=== PATIENT | female | born 1980 | race African-American/Black ===

== ENCOUNTER → 2016-06-05 | Outpatient (CLI) | payer OTHER ==
[2014-11-17 23:30] VITALS: BP 144/81
[~2016-06-05] MED LIST: ALBU1.25; ALBU8.5H6; NAPR500T PO; OXYC1TAB7 PO
--- NOTE | 2016-06-05 17:00 | KCIC ---
Examination: Ultrasound pelvis. HISTORY History of menorrhagia with irregular menstrual cycle, right pelvic pain. COMPARISON None available Findings: The uterus measures 11.9 x 4.5 x 6.5 centimeters. The endometrium measures 2 millimeters in thickness. The right ovary measures 2.4 x 2.2 x 3.3 centimeters. The left ovary measures 3.2 x 2.1 x 2.5 centimeters. The left ovary could not be clearly identified on transvaginal ultrasound exam. Blood flow identified in the right and left ovaries. No significant free fluid identified in the cul-de-sac. IMPRESSION Unremarkable visualized exam. Electronically signed by: Markos Foster (Jun 05, 2016 16:59:28)
== END | disposition home or self-care (01) ==
LOC: KCIC US 15:20
PROVIDERS: ATTEND Physician Assistant Surgical
DX: N92.0 Excessive and frequent menstruation with regular cycle (principal)
CPT/HCPCS: 76830; 76856

== ENCOUNTER 2017-05-11 16:20 | Observation (INO) | payer OTHER ==
[2014-11-17 23:30] VITALS: BP 144/81
[~2017-05-11] VITALS: Ht 167.6 cm; Wt 136.5 kg
[~2017-05-11 16:20] MED LIST changes: +ATEN25TA PO; +NAPR-683 PO; -NAPR500T PO; +PNV1TABL25 PO
[2017-05-11 17:14] LABS: BILIRUBIN,URINE NEGATIVE (NEG); GLUCOSE,URINE NEGATIVE (NEG); NITRITE,URINE NEGATIVE (NEG); PROTEIN,URINE NEGATIVE (NEG-TRACE)
[2017-05-11 17:33] LABS: BACTERIA,URINE FEW /HPF (0-FEW); RBC,URINE 0 /HPF (0-2); SQUAMOUS EPITHELIAL CELL,UR MOD /LPF; WBC,URINE OCC /HPF (0-4)
== END 2017-05-11 18:30 | disposition home or self-care (01) ==
LOC: 3 SO LND 16:20
PROVIDERS: ADMIT Obstetrics & Gynecology; ATTEND Obstetrics & Gynecology
DX: O26.893 Other specified pregnancy related conditions, third trimester (principal); R10.9 Unspecified abdominal pain; R05 Cough; Z3A.35 35 weeks gestation of pregnancy
CPT/HCPCS: 81001; G0378; G0379

== ENCOUNTER 2017-06-05 06:01 | Inpatient (IN) | payer OTHER ==
[2017-06-05] MEDS: IV RINGERS,LACTATED 1000ML 1,000 ML IV ×7 (06:16→23:00)
[2017-06-05] MEDS ORDERED: OXYTOCIN 30 UNIT/500 ML PREMIX 500 ML IV ×2 (06:30→09:30)
[2017-06-05] MEDS ORDERED: 0.9 % SODIUM CHLORIDE 10 ML DISP.SYRIN. IV ×2 (06:30→09:30)
[2017-06-05] MEDS ORDERED: OXYTOCIN 10 UNIT/ML VIAL. ×2 (07:08→09:04)
[2017-06-05] MEDS ORDERED: ONDANSETRON PF 4 MG/2 ML VIAL. ×2 (07:08)
[2017-06-05] MEDS ORDERED: fentaNYL PF VIAL 100 MCG/2 ML VIAL (07:08)
[2017-06-05] MEDS ORDERED: MORPHINE PF 5 MG/10 ML VIAL. (07:08)
[2017-06-05] MEDS ORDERED: ePHEDrine PF IN SALINE 50 MG/5 ML DISP.SYRIN IV (07:09)
[2017-06-05 07:13] LABS: BILIRUBIN,URINE NEGATIVE (NEG); CLARITY,URINE CLEAR; COLOR,URINE YELLOW; GLUCOSE,URINE NEGATIVE (NEG); NITRITE,URINE NEGATIVE (NEG); PH,URINE 7.5; PROTEIN,URINE NEGATIVE (NEG-TRACE); UROBILINOGEN,URINE 0.2 mg/dL (0.2 mg/dL)
[2017-06-05 07:18] LABS: ADD MAN DIFF? NO
[2017-06-05 07:23] LABS: BASO % 0 % (0-3); EOS # 0.1 x10^3/uL (0.0-0.7); EOS % 1 % (0-3); HEMATOCRIT 32.5 % (36.0-47.0); HEMOGLOBIN 10.6 g/dL (12.0-15.5); LYMPH # 2.5 x10^3/uL (1.0-4.8); LYMPH % 29 % (24-48); MEAN CORPUSCULAR HEMOGLOBIN 27 pg (25-35); MEAN CORPUSCULAR HGB CONC 33 g/dL (31-37); MEAN CORPUSCULAR VOLUME 84 fL (79-100); MONO # 0.8 x10^3/uL (0.0-1.1); MONO % 9 % (0-9); NEUT # 5.2 x10^3uL (1.8-7.7); NEUT % 60 % (31-73); PLATELET COUNT 232 x10^3/uL (140-400); RED BLOOD COUNT 3.87 x10^6/uL (3.50-5.40); RED CELL DISTRIBUTION WIDTH 14.6 % (11.5-14.5); SQUAMOUS EPITHELIAL CELL,UR MANY /LPF; WHITE BLOOD COUNT 8.6 x10^3/uL (4.0-11.0)
[2017-06-05 07:24] LABS: BACTERIA,URINE MODERATE /HPF (0-FEW); RBC,URINE OCC /HPF (0-2)
[2017-06-05] MEDS: CITRIC ACID/SODIUM CITRATE 30 ML SOLUTION. PO (08:00)
[2017-06-05] MEDS ORDERED: FAMOTIDINE 20 MG/2 ML VIAL (09:04)
[2017-06-05] MEDS ORDERED: PHENYLEPHRINE in 0.9% NACL PF 1 MG/10 ML SYRINGE. IV (09:04)
[2017-06-05] MEDS ORDERED: MMR per PROTOCOL. MC (09:30)
[2017-06-05] MEDS ORDERED: SIMETHICONE 80 MG TAB.CHEW PO (09:30)
[2017-06-05] MEDS ORDERED: ZOLPIDEM 5 MG TABLET. PO (09:30)
[2017-06-05] MEDS ORDERED: MAGNESIUM HYDROXIDE 2,400 MG/30 ML ORAL.SUSP. PO (09:30)
[2017-06-05] MEDS ORDERED: MAG HYDROX/ALUMINUM HYD/SIMETH 30 ML ORAL.SUSP PO (09:30)
[2017-06-05] MEDS ORDERED: ONDANSETRON PF 4 MG/2 ML VIAL. IV (09:30)
[2017-06-05] MEDS: KETOROLAC 30 MG/ML INJ. IV (11:44)
[2017-06-05] MEDS: IBUPROFEN 800 MG TABLET. PO (14:00)
[2017-06-05] MEDS ORDERED: ceFAZolin SODIUM 1 GM in IV DEXTROSE 5% 50 ML IV (14:00)
[2017-06-05] MEDS: ceFAZolin SODIUM IV Push 1 GM VIAL. IVP ×2 (15:53→21:47)
[2017-06-05] MEDS: FERROUS SULFATE 325 MG TABLET. PO (17:00)
[2017-06-05] MEDS: diphenhydrAMINE ORAL ELIXIR 12.5 MG/5 ML ML PO (21:51)
[2017-06-06] MEDS: DOCUSATE SODIUM 100 MG CAPSULE. PO (04:32)
[2017-06-06] MEDS: IBUPROFEN 800 MG TABLET. PO ×5 (04:33→23:59)
[2017-06-06] MEDS: oxyCODONE/APAP 5/325 1 TAB TABLET PO ×3 (04:33→15:58)
[2017-06-06] MEDS: ceFAZolin SODIUM IV Push 1 GM VIAL. IVP (05:15)
[2017-06-06 05:36] LABS: ADD MAN DIFF? NO
[2017-06-06 05:42] LABS: BASO % 0 % (0-3); EOS # 0.1 x10^3/uL (0.0-0.7); EOS % 1 % (0-3); HEMATOCRIT 25.4 % (36.0-47.0); HEMOGLOBIN 8.2 g/dL (12.0-15.5); LYMPH # 2.4 x10^3/uL (1.0-4.8); LYMPH % 22 % (24-48); MEAN CORPUSCULAR HEMOGLOBIN 28 pg (25-35); MEAN CORPUSCULAR HGB CONC 33 g/dL (31-37); MEAN CORPUSCULAR VOLUME 85 fL (79-100); MONO # 1.2 x10^3/uL (0.0-1.1); MONO % 11 % (0-9); NEUT # 7.4 x10^3uL (1.8-7.7); NEUT % 67 % (31-73); PLATELET COUNT 197 x10^3/uL (140-400); RED BLOOD COUNT 2.99 x10^6/uL (3.50-5.40); RED CELL DISTRIBUTION WIDTH 14.5 % (11.5-14.5); WHITE BLOOD COUNT 11.1 x10^3/uL (4.0-11.0)
[2017-06-06] MEDS: FERROUS SULFATE 325 MG TABLET. PO ×2 (08:14→15:57)
[2017-06-06 21:11] LABS: RPR Non Reactive (Non Reactive)
[2017-06-07] MEDS: DOCUSATE SODIUM 100 MG CAPSULE. PO ×2 (00:01→20:28)
[2017-06-07] MEDS: oxyCODONE/APAP 5/325 1 TAB TABLET PO ×2 (07:40→20:29)
[2017-06-07] MEDS: FERROUS SULFATE 325 MG TABLET. PO ×2 (09:46→18:18)
[2017-06-07] MEDS: IBUPROFEN 800 MG TABLET. PO ×2 (11:45→22:31)
[2017-06-08] MEDS: IBUPROFEN 800 MG TABLET. PO (06:06)
[2017-06-08] MEDS: oxyCODONE/APAP 5/325 1 TAB TABLET PO (06:07)
[2017-06-08] MEDS: DOCUSATE SODIUM 100 MG CAPSULE. PO (08:35)
[2017-06-08] MEDS: FERROUS SULFATE 325 MG TABLET. PO (08:35)
== END 2017-06-08 14:20 | disposition home or self-care (01) | DRG 766 ==
LOC: 3 SO LND 06:01 → 3 NORTH 11:53
PROC: 10D00Z1 Extraction of Products of Conception, Low, Open Approach (ICD-10-PCS; principal; 2017-06-05)
PROC: 0UB70ZZ Excision of Bilateral Fallopian Tubes, Open Approach (ICD-10-PCS; 2017-06-05)
DX: O36.63X0 Maternal care for excessive fetal growth, third trimester, not applicable or unspecified (principal); Z30.2 Encounter for sterilization; Z37.0 Single live birth; Z3A.39 39 weeks gestation of pregnancy
CPT/HCPCS: 36415; 81001; 85025; 85461; 86593; 86850; 86900; 86901; 87086; 88302; J0690; J1885; J2270; J2370; J2405; J2590; J3010; J7120; S0028

== ENCOUNTER → 2019-06-06 | Outpatient (CLI) | payer OTHER ==
[2017-06-08 08:30] VITALS: BP 136/79
[~2019-06-06] MED LIST changes: +CONTRAST GIVEN. MC PRN; +OXYC1TAB15 PO
[2019-06-06] MEDS: IOHEXOL 240 MG/ML 50ML VIAL. PO ONE (14:15)
[2019-06-06] MEDS: IOHEXOL 300 MG/ML 100ML VIAL. IV ONE (14:15)
--- NOTE | 2019-06-06 16:28 | RAD ---
Examination: CT ABD PELV W/ORAL IV CONTRAST History: Ventral hernia Comparison/Correlation: 08/08/2006 CT abdomen and pelvis with IV and oral contrast Findings: Axial images of the abdomen and pelvis were obtained following IV and oral contrast. Sagittal and coronal reformatted images were provided. Bibasilar lung nodules are present similar to the prior exam. These are punctate in size measuring less than 0.4 cm. Liver, spleen, pancreas, adrenal glands, and kidneys are normal. Gallbladder fossa is unremarkable. There is a midline ventral hernia approximately 6-7 cm superior to the umbilicus. This defect measures 2.5 cm longitudinal by 2.5 cm transverse and contains omental fat. No edema or other suspicious findings to suggest acute inflammation. No extension of bowel into this hernia defect. Small umbilical hernia containing omental fat. Appendix is normal. No enlarged abdominal or pelvic lymph nodes. No extraluminal gas. Mild diverticulosis of the colon is present. Fibroid involving the uterus suggested. No signs of pelvic free fluid. Urinary bladder is grossly unremarkable. Osteitis pubis noted. Bilateral L5 pars interarticularis fractures are present with nearly grade 2 anterolisthesis of L5 in relation to S1 with significant disc space narrowing. Impression: Ventral hernia defect containing omental fat. A small umbilical hernia contains omental fat. L5 bilateral pars interarticularis fractures with grade 2 anterolisthesis of L4 over L5. This appears to have a corresponding finding on 08/08/2006 CT exam. Diverticulosis of the colon. PQRS Compliance Statement: One or more of the following individualized dose reduction techniques were utilized for this examination: 1. Automated exposure control 2. Adjustment of the mA and/or kV according to patient size 3. Use of iterative reconstruction technique Electronically signed by: Cesar Saez MD (06/06/2019 4:25 PM) [facility]
== END | disposition home or self-care (01) ==
LOC: CT 13:10
PROVIDERS: ATTEND Specialist
DX: K43.9 Ventral hernia without obstruction or gangrene (principal); K42.9 Umbilical hernia without obstruction or gangrene; K57.30 Diverticulosis of large intestine without perforation or abscess without bleeding; M85.38 Osteitis condensans, other site; R91.8 Other nonspecific abnormal finding of lung field; M43.17 Spondylolisthesis, lumbosacral region; M48.07 Spinal stenosis, lumbosacral region
CPT/HCPCS: 74177; Q9966; Q9967

== ENCOUNTER 2019-06-07 07:06 | Day surgery (SDC) | payer OTHER ==
[~2019-06-07] VITALS: Ht 167.6 cm; Wt 131.0 kg
[~2019-06-07 07:06] MED LIST changes: -CONTRAST GIVEN. MC PRN; +DEXAMETHASONE SOD PHOS 4 MG/ML VIAL ONE; +HYDROmorphone 2 MG/ML VIAL IV PRN; +IOHEXOL 240 MG/ML 50ML VIAL. ONE; +IOHEXOL 300 MG/ML 100ML VIAL. ONE; +IV RINGERS,LACTATED 1000ML 1,000 ML IV SCH; +LIDOCAINE 2% PF 5 ML VIAL. ONE; +MORPHINE SULFATE 2 MG/ML VIAL. IV PRN; +ONDANSETRON PF 4 MG/2 ML VIAL. IV PRN; +ONDANSETRON PF 4 MG/2 ML VIAL. ONE; +PROCHLORPERAZINE 10 MG/2 ML VIAL. IV PRN; +PROPOFOL 20 ML IV ONE; +ROCURONIUM 50 MG/5 ML VIAL. ONE; +fentaNYL PF VIAL 100 MCG/2 ML VIAL IV PRN
[2019-06-07] MEDS ORDERED: BUPIVACAINE-EPI 0.5%-1:200000 MPF 30 ML VIAL. ONE (07:41)
[2019-06-07 08:04] LABS: BASO % 1 % (0-3); EOS # 0.2 x10^3/uL (0.0-0.7); EOS % 4 % (0-3); HEMATOCRIT 36.2 % (36.0-47.0); HEMOGLOBIN 11.9 g/dL (12.0-15.5); LYMPH # 2.3 x10^3/uL (1.0-4.8); LYMPH % 39 % (24-48); MEAN CORPUSCULAR HEMOGLOBIN 29 pg (25-35); MEAN CORPUSCULAR HGB CONC 33 g/dL (31-37); MEAN CORPUSCULAR VOLUME 88 fL (79-100); MONO # 0.5 x10^3/uL (0.0-1.1); MONO % 9 % (0-9); NEUT # 2.8 x10^3/uL (1.8-7.7); NEUT % 48 % (31-73); PLATELET COUNT 294 x10^3/uL (140-400); RED BLOOD COUNT 4.13 x10^6/uL (3.50-5.40); RED CELL DISTRIBUTION WIDTH 15.1 % (11.5-14.5); WHITE BLOOD COUNT 5.9 x10^3/uL (4.0-11.0)
[2019-06-07 08:12] LABS: PROTHROMBIN TIME PATIENT 13.4 SEC (11.7-14.0)
[2019-06-07 08:13] LABS: CALCIUM 8.7 mg/dL (8.5-10.1); CREATININE 0.9 mg/dL (0.6-1.0); GFR 85.7; POTASSIUM 3.5 mmol/L (3.5-5.1)
[2019-06-07 08:17] LABS: ALBUMIN 3.3 g/dL (3.4-5.0); ALBUMIN/GLOBULIN RATIO 0.7 (1.0-1.7); TOTAL BILIRUBIN 0.3 mg/dL (0.2-1.0); TOTAL PROTEIN 8.1 g/dL (6.4-8.2)
--- NOTE | 2019-06-07 08:44 | PDOC ---
SURGICAL PROGRESS NOTE Subjective No change in dictated H&P. Vital Signs Vital Signs Date Time Temp Pulse Resp B/P (MAP) Pulse Ox O2 Delivery O2 Flow Rate FiO2 06/07/19 08:01 98.0 74 18 160/91 98 Room Air 98.0 Labs Laboratory Tests Test 06/07/19 07:35 06/07/19 07:50 Bedside Urine HCG, Qualitative Hcg negative (Negative) White Blood Count 5.9 x10^3/uL (4.0-11.0) Red Blood Count 4.13 x10^6/uL (3.50-5.40) Hemoglobin 11.9 g/dL (12.0-15.5) Hematocrit 36.2 % (36.0-47.0) Mean Corpuscular Volume 88 fL (79-100) Mean Corpuscular Hemoglobin 29 pg (25-35) Mean Corpuscular Hemoglobin Concent 33 g/dL (31-37) Red Cell Distribution Width 15.1 % (11.5-14.5) Platelet Count 294 x10^3/uL (140-400) Neutrophils (%) (Auto) 48 % (31-73) Lymphocytes (%) (Auto) 39 % (24-48) Monocytes (%) (Auto) 9 % (0-9) Eosinophils (%) (Auto) 4 % (0-3) Basophils (%) (Auto) 1 % (0-3) Neutrophils # (Auto) 2.8 x10^3/uL (1.8-7.7) Lymphocytes # (Auto) 2.3 x10^3/uL (1.0-4.8) Monocytes # (Auto) 0.5 x10^3/uL (0.0-1.1) Eosinophils # (Auto) 0.2 x10^3/uL (0.0-0.7) Basophils # (Auto) 0.0 x10^3/uL (0.0-0.2) Prothrombin Time 13.4 SEC (11.7-14.0) Prothromb Time International Ratio 1.1 (0.8-1.1) Sodium Level 137 mmol/L (136-145) Potassium Level 3.5 mmol/L (3.5-5.1) Chloride Level 103 mmol/L (98-107) Carbon Dioxide Level 28 mmol/L (21-32) Anion Gap 6 (6-14) Blood Urea Nitrogen 9 mg/dL (7-20) Creatinine 0.9 mg/dL (0.6-1.0) Estimated GFR (Cockcroft-Gault) 85.7 BUN/Creatinine Ratio 10 (6-20) Glucose Level 103 mg/dL (70-99) Calcium Level 8.7 mg/dL (8.5-10.1) Total Bilirubin 0.3 mg/dL (0.2-1.0) Aspartate Amino Transf (AST/SGOT) 17 U/L (15-37) Alanine Aminotransferase (ALT/SGPT) 23 U/L (14-59) Alkaline Phosphatase 62 U/L (46-116) Total Protein 8.1 g/dL (6.4-8.2) Albumin 3.3 g/dL (3.4-5.0) Albumin/Globulin Ratio 0.7 (1.0-1.7) Laboratory Tests Test 06/07/19 07:35 06/07/19 07:50 Bedside Urine HCG, Qualitative Hcg negative (Negative) White Blood Count 5.9 x10^3/uL (4.0-11.0) Red Blood Count 4.13 x10^6/uL (3.50-5.40) Hemoglobin 11.9 g/dL (12.0-15.5) Hematocrit 36.2 % (36.0-47.0) Mean Corpuscular Volume 88 fL (79-100) Mean Corpuscular Hemoglobin 29 pg (25-35) Mean Corpuscular Hemoglobin Concent 33 g/dL (31-37) Red Cell Distribution Width 15.1 % (11.5-14.5) Platelet Count 294 x10^3/uL (140-400) Neutrophils (%) (Auto) 48 % (31-73) Lymphocytes (%) (Auto) 39 % (24-48) Monocytes (%) (Auto) 9 % (0-9) Eosinophils (%) (Auto) 4 % (0-3) Basophils (%) (Auto) 1 % (0-3) Neutrophils # (Auto) 2.8 x10^3/uL (1.8-7.7) Lymphocytes # (Auto) 2.3 x10^3/uL (1.0-4.8) Monocytes # (Auto) 0.5 x10^3/uL (0.0-1.1) Eosinophils # (Auto) 0.2 x10^3/uL (0.0-0.7) Basophils # (Auto) 0.0 x10^3/uL (0.0-0.2) Prothrombin Time 13.4 SEC (11.7-14.0) Prothromb Time International Ratio 1.1 (0.8-1.1) Sodium Level 137 mmol/L (136-145) Potassium Level 3.5 mmol/L (3.5-5.1) Chloride Level 103 mmol/L (98-107) Carbon Dioxide Level 28 mmol/L (21-32) Anion Gap 6 (6-14) Blood Urea Nitrogen 9 mg/dL (7-20) Creatinine 0.9 mg/dL (0.6-1.0) Estimated GFR (Cockcroft-Gault) 85.7 BUN/Creatinine Ratio 10 (6-20) Glucose Level 103 mg/dL (70-99) Calcium Level 8.7 mg/dL (8.5-10.1) Total Bilirubin 0.3 mg/dL (0.2-1.0) Aspartate Amino Transf (AST/SGOT) 17 U/L (15-37) Alanine Aminotransferase (ALT/SGPT) 23 U/L (14-59) Alkaline Phosphatase 62 U/L (46-116) Total Protein 8.1 g/dL (6.4-8.2) Albumin 3.3 g/dL (3.4-5.0) Albumin/Globulin Ratio 0.7 (1.0-1.7) NARCISO LINARES MD Jun 07, 2019 08:44
--- NOTE | 2019-06-07 08:48 | PDOC ---
SURGICAL PROGRESS NOTE Subjective Operative Note: Surgeon........ Dr. Linares Pre-op dx...... Incarcerated Ventral hernia Post-op dx.....same Anesthesia.... General Procedure...... Repair ventral hernia with mesh Blood Loss.....25cc Fluids............ See Anesthesia sheet Drains.............none Condition....... satisfactory Vital Signs Vital Signs Date Time Temp Pulse Resp B/P (MAP) Pulse Ox O2 Delivery O2 Flow Rate FiO2 06/07/19 08:01 98.0 74 18 160/91 98 Room Air 98.0 Labs Laboratory Tests Test 06/07/19 07:35 06/07/19 07:50 Bedside Urine HCG, Qualitative Hcg negative (Negative) White Blood Count 5.9 x10^3/uL (4.0-11.0) Red Blood Count 4.13 x10^6/uL (3.50-5.40) Hemoglobin 11.9 g/dL (12.0-15.5) Hematocrit 36.2 % (36.0-47.0) Mean Corpuscular Volume 88 fL (79-100) Mean Corpuscular Hemoglobin 29 pg (25-35) Mean Corpuscular Hemoglobin Concent 33 g/dL (31-37) Red Cell Distribution Width 15.1 % (11.5-14.5) Platelet Count 294 x10^3/uL (140-400) Neutrophils (%) (Auto) 48 % (31-73) Lymphocytes (%) (Auto) 39 % (24-48) Monocytes (%) (Auto) 9 % (0-9) Eosinophils (%) (Auto) 4 % (0-3) Basophils (%) (Auto) 1 % (0-3) Neutrophils # (Auto) 2.8 x10^3/uL (1.8-7.7) Lymphocytes # (Auto) 2.3 x10^3/uL (1.0-4.8) Monocytes # (Auto) 0.5 x10^3/uL (0.0-1.1) Eosinophils # (Auto) 0.2 x10^3/uL (0.0-0.7) Basophils # (Auto) 0.0 x10^3/uL (0.0-0.2) Prothrombin Time 13.4 SEC (11.7-14.0) Prothromb Time International Ratio 1.1 (0.8-1.1) Sodium Level 137 mmol/L (136-145) Potassium Level 3.5 mmol/L (3.5-5.1) Chloride Level 103 mmol/L (98-107) Carbon Dioxide Level 28 mmol/L (21-32) Anion Gap 6 (6-14) Blood Urea Nitrogen 9 mg/dL (7-20) Creatinine 0.9 mg/dL (0.6-1.0) Estimated GFR (Cockcroft-Gault) 85.7 BUN/Creatinine Ratio 10 (6-20) Glucose Level 103 mg/dL (70-99) Calcium Level 8.7 mg/dL (8.5-10.1) Total Bilirubin 0.3 mg/dL (0.2-1.0) Aspartate Amino Transf (AST/SGOT) 17 U/L (15-37) Alanine Aminotransferase (ALT/SGPT) 23 U/L (14-59) Alkaline Phosphatase 62 U/L (46-116) Total Protein 8.1 g/dL (6.4-8.2) Albumin 3.3 g/dL (3.4-5.0) Albumin/Globulin Ratio 0.7 (1.0-1.7) Laboratory Tests Test 06/07/19 07:35 06/07/19 07:50 Bedside Urine HCG, Qualitative Hcg negative (Negative) White Blood Count 5.9 x10^3/uL (4.0-11.0) Red Blood Count 4.13 x10^6/uL (3.50-5.40) Hemoglobin 11.9 g/dL (12.0-15.5) Hematocrit 36.2 % (36.0-47.0) Mean Corpuscular Volume 88 fL (79-100) Mean Corpuscular Hemoglobin 29 pg (25-35) Mean Corpuscular Hemoglobin Concent 33 g/dL (31-37) Red Cell Distribution Width 15.1 % (11.5-14.5) Platelet Count 294 x10^3/uL (140-400) Neutrophils (%) (Auto) 48 % (31-73) Lymphocytes (%) (Auto) 39 % (24-48) Monocytes (%) (Auto) 9 % (0-9) Eosinophils (%) (Auto) 4 % (0-3) Basophils (%) (Auto) 1 % (0-3) Neutrophils # (Auto) 2.8 x10^3/uL (1.8-7.7) Lymphocytes # (Auto) 2.3 x10^3/uL (1.0-4.8) Monocytes # (Auto) 0.5 x10^3/uL (0.0-1.1) Eosinophils # (Auto) 0.2 x10^3/uL (0.0-0.7) Basophils # (Auto) 0.0 x10^3/uL (0.0-0.2) Prothrombin Time 13.4 SEC (11.7-14.0) Prothromb Time International Ratio 1.1 (0.8-1.1) Sodium Level 137 mmol/L (136-145) Potassium Level 3.5 mmol/L (3.5-5.1) Chloride Level 103 mmol/L (98-107) Carbon Dioxide Level 28 mmol/L (21-32) Anion Gap 6 (6-14) Blood Urea Nitrogen 9 mg/dL (7-20) Creatinine 0.9 mg/dL (0.6-1.0) Estimated GFR (Cockcroft-Gault) 85.7 BUN/Creatinine Ratio 10 (6-20) Glucose Level 103 mg/dL (70-99) Calcium Level 8.7 mg/dL (8.5-10.1) Total Bilirubin 0.3 mg/dL (0.2-1.0) Aspartate Amino Transf (AST/SGOT) 17 U/L (15-37) Alanine Aminotransferase (ALT/SGPT) 23 U/L (14-59) Alkaline Phosphatase 62 U/L (46-116) Total Protein 8.1 g/dL (6.4-8.2) Albumin 3.3 g/dL (3.4-5.0) Albumin/Globulin Ratio 0.7 (1.0-1.7) NARCISO LINARES MD Jun 07, 2019 08:48
[2019-06-07] MEDS ORDERED: fentaNYL PF VIAL 250 MCG/5 ML VIAL ONE (08:59)
[2019-06-07] MEDS ORDERED: SEVOFLURANE > 120 MINUTES. IH ONE (10:48)
[2019-06-07] MEDS ORDERED: GLYCOPYRROLATE 1 MG/5 ML VIAL. ONE (10:49)
[2019-06-07] MEDS ORDERED: NEOSTIGMINE METHYLSULFATE 5 MG/5 ML SYRINGE. ONE (10:49)
[2019-06-07] MEDS ORDERED: BUPIVACAINE MPF 0.5% 30 ML VIAL. ONE (10:58)
[2019-06-07] MEDS ORDERED: EPINEPHrine 1 MG/ML VIAL ONE (10:58)
[2019-06-07] MEDS ORDERED: DEXAMETHASONE SOD PHOS 4 MG/ML VIAL ONE (11:01)
--- NOTE | 2019-06-07 11:06 | DISCH ---
DISCHARGE INSTRUCTIONS Condition on Discharge Condition on Discharge: Stable Activity After Discharge Activity Instructions for Disc: Activity as tolerated, Other, see below Other activity instructions: no strenuous activity Lifting Instructions after Dis: No heavy lifting, No pulling or pushing, Do not lift >10 pounds, Add. restrict see below Exercise Instruction after Dis: Progress as tolerated Driving Instructions after Dis: No driving for 2 weeks Weight Bearing Status after Di: As tolerated Diet after Discharge Diet after Discharge: Regular Diet Texture: Regular Wound Incision Care Wound/Incision Care: No wound care needed, Other, see below Other wound/incision instructi: leqve dressing on and change only if basolutely necessary Checks after Discharge Checks after discharge: Check your Temp as needed Contacting the DRJuan J after DC Call your doctor for: If your condition worsens Follow-Up Follow up with: Dr Linares in 7-10 days Treatment/Equipment after DC Adaptive Equipment Issued: None NARCISO LINARSE MD Jun 07, 2019 11:06
[2019-06-07] MEDS ORDERED: HYDROcodone/APAP 7.5/325MG 1 TAB TABLET PO ONE (11:45)
[2019-06-07 12:00] VITALS: BP 160/88
--- NOTE | 2019-06-08 01:10 | OP ---
DATE OF SURGERY: 06/07/2019 SURGEON: Bharathi Linares MD PREOPERATIVE DIAGNOSIS: Incarcerated ventral hernia. POSTOPERATIVE DIAGNOSIS: Incarcerated ventral hernia. PROCEDURE: Repair of incarcerated ventral hernia with mesh. ANESTHESIA: General. TECHNIQUE: Under general anesthesia, the patient was properly prepped and draped in the routine fashion. The mass of the abdominal wall being in the midline, about 3-4 inches above the umbilicus we made a longitudinal incision with a 15 blade. We carried this down through the skin being careful not to enter the mass that was beneath this. We used cautery to go through some of the subcutaneous tissues and identified the mass. We used finger dissection and Metzenbaum scissors to divide it from the surrounding subcutaneous tissues and then dissected it down to the base. The mass was about the size of an apple, which was about 3-4 inches in diameter. The lesion was defined down to the fascia and the tissue around the fascia was divided. There appeared to be two hernias, one more inferiorly, which was by a small band of fibrous tissue. This was divided, which then allowed both hernias to be dissected free, mostly with finger dissection and we were able to be invert it and free this up from the underlying tissue under the fascia. We did not enter the peritoneal cavity. Having freed this up with finger dissection and taking some of the adhesions down, we thought we had a good wide enough area to repair the hernia. We used a, I think it was a, 6-8 cm disk with Seprafilm on the side to go toward the inside of the patient's abdomen that we did not enter the abdomen. We placed this in the area that laid flat. I then used #1 Prolene sutures interrupted about 5 to close the fascial defect incorporating the mesh. The tag that was on the mesh was cut away and the mesh was laid flat against the anterior abdominal wall inside the abdominal fascia and we then tied the sutures. We had good closure with mesh beneath that laid flat. This having been done, we then inspected the area and injected the fascia with 0.5% Marcaine and epinephrine. Subcutaneous tissues were then irrigated with copious amounts of saline and then approximated using interrupted 3-0 and 4-0 Vicryl to obliterate any space. The skin was then closed using a skin stapler and a Tegaderm dressing was applied. ESTIMATED BLOOD LOSS: Probably about 18-20 mL. Fluids given can be obtained from the anesthesia sheet. No drains were used. CONDITION OF THE PATIENT: Satisfactory as she has returned to the recovery room. BHARATHI LINARES MD DR: DEIDRE/kristel JOB#: [id number] / [id number] [place]
--- NOTE | 2019-06-08 10:11 | HP ---
ADMIT DATE: 06/07/2019 HISTORY OF PRESENT ILLNESS: The patient is referred to me because of a painful mass at the abdominal wall. The history is that she has had this for some years, is getting slowly larger and apparently started with childbirth. She states that it causes her pain now and difficulty eating at times. PAST MEDICAL HISTORY: Shows normal childhood diseases. No high blood pressure, cancer, TB, asthma. MEDICATIONS: She takes medicine for no medicine for no diseases. PAST SURGICAL HISTORY: She has had a about 2 years ago. ALLERGIES: The patient has no allergies. Otherwise has not had any other surgery. She does state that she has wondered about having surgery for this, but has not, it is getting larger and more painful and therefore she wants something done. FAMILY HISTORY: Noncontributory. REVIEW OF SYSTEMS: Shows that she has no difficulties except for this pain at the area; the area is above the umbilicus and is not an umbilical hernia. She states that sometimes she gets indigestion from this. SOCIAL HISTORY: Shows that she does not smoke except for a cigarette about once a week and drinks only socially and not enough to get inebriated. She does not use illicit drugs. PHYSICAL EXAMINATION: GENERAL: Shows a somewhat obese female in no acute distress. HEAD, EARS, EYES, NOSE THROAT: Grossly normal. CHEST: Clear bilaterally to auscultation. HEART: Had no murmurs, heaves, friction rubs or thrills and the rate was 75 beats per minute and it was regular. EXTREMITIES: Otherwise normal. BREASTS: Not examined. ABDOMEN: Did have a mass, about an apple size mass above the umbilicus by about 4-5 inches and there is a mass which could not be totally reduced and it was minimally tender. The remainder of the abdomen did not show any organomegaly. She had no evidence of peritoneal irritation. No guarding, rebound and no organomegaly. PELVIC: Not done. RECTAL: Not done. IMPRESSION: Ventral hernia. NARCISO LINARES MD DR: DEIDRE/kristel JOB#: [id number] / [id number]
== END 2019-06-07 12:35 | disposition home or self-care (01) ==
LOC: SURG 07:06
PROVIDERS: ATTEND Specialist
DX: K43.6 Other and unspecified ventral hernia with obstruction, without gangrene (principal); F17.210 Nicotine dependence, cigarettes, uncomplicated; E66.01 Morbid (severe) obesity due to excess calories; Z68.42 Body mass index [BMI] 45.0-49.9, adult; Z98.51 Tubal ligation status; Z79.01 Long term (current) use of anticoagulants; Z72.89 Other problems related to lifestyle
CPT/HCPCS: 36415; 49561; 49568; 80053; 81025; 85025; 85610; A7015; C1781; J0171; J0690; J1100; J2001; J2405; J2704; J2710; J3010; J3490; J7120; Q9966; Q9967

== ENCOUNTER 2019-08-16 17:06 | Emergency (ER) | payer OTHER ==
[~2019-08-16] VITALS: Ht 167.6 cm; Wt 104.0 kg
[~2019-08-16 17:06] MED LIST changes: -DEXAMETHASONE SOD PHOS 4 MG/ML VIAL ONE; -HYDROmorphone 2 MG/ML VIAL IV PRN; -IOHEXOL 240 MG/ML 50ML VIAL. ONE; -IOHEXOL 300 MG/ML 100ML VIAL. ONE; -IV RINGERS,LACTATED 1000ML 1,000 ML IV SCH; -LIDOCAINE 2% PF 5 ML VIAL. ONE; -MORPHINE SULFATE 2 MG/ML VIAL. IV PRN; -ONDANSETRON PF 4 MG/2 ML VIAL. IV PRN; -ONDANSETRON PF 4 MG/2 ML VIAL. ONE; -PROCHLORPERAZINE 10 MG/2 ML VIAL. IV PRN; -PROPOFOL 20 ML IV ONE; -ROCURONIUM 50 MG/5 ML VIAL. ONE; -fentaNYL PF VIAL 100 MCG/2 ML VIAL IV PRN
[2019-08-16 19:10] VITALS: BP 153/81
[2019-08-16] MEDS ORDERED: ORPH100T PO (19:21)
[2019-08-16] MEDS ORDERED: IBUP-1007 PO (19:21)
[2019-08-16] MEDS ORDERED: HYDR-3164 PO (19:21)
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
--- NOTE | 2019-08-16 20:03 | RAD ---
Exam: CT head and cervical spine without contrast INDICATION: Headache TECHNIQUE: Sequential axial images through the head and neck pain were obtained without the administration of IV contrast. Comparisons: None FINDINGS: Head: No focal parenchymal lesion or hemorrhage is identified. There is no midline shift or sulcal effacement. No acute vascular territory infarction is identified. Bethea-white distinction is preserved. The ventricular system is within normal limits without compression hydrocephalus. The basal cisterns are well maintained. The visualized portions of the paranasal sinuses and mastoid air cells are well-pneumatized. No acute fractures. Cervical spine: Straightening of cervical spine which may be positional. Vertebral body heights are well-maintained. Fracture to the cervical spine is not identified. No significant spondylotic change in cervical spine. Visualized paraspinal soft tissues are unremarkable. IMPRESSION: 1. No acute intracranial abnormality. 2. Negative CT C-spine for acute traumatic injury. Exposure: One or more of the following in the visualized dose reduction techniques were utilized for this examination: 1. Automated exposure control 2. Adjustment of the MA and/or KV according to patient size Use of iterative of reconstructive technique Electronically signed by: Alistair Mondragon MD (08/16/2019 8:00 PM) [id number]
== END 2019-08-16 20:24 | disposition home or self-care (01) ==
LOC: ER 17:06
DX: M54.2 Cervicalgia (principal); M54.9 Dorsalgia, unspecified; R51 Headache; G89.11 Acute pain due to trauma; J45.909 Unspecified asthma, uncomplicated; V49.9XXA Car occupant (driver) (passenger) injured in unspecified traffic accident, initial encounter; Y92.488 Other paved roadways as the place of occurrence of the external cause; Y93.89 Activity, other specified; Y99.8 Other external cause status
CPT/HCPCS: 70450; 72125; 99285-25

== ENCOUNTER 2020-11-15 05:10 | Emergency (ER) | payer OTHER ==
[~2020-11-15] VITALS: Ht 167.6 cm; Wt 144.6 kg
[~2020-11-15 05:10] MED LIST changes: +HYDR-3164 PO; +IBUP-1007 PO; +ORPH100T PO
--- NOTE | 2020-11-15 05:35 | PHYS DOC ---
Past Medical History Past Medical History: Asthma, Bronchitis Additional Past Medical Histor: Seasonal allergies (MUSTAPHAGONZALEZ Leone ) Past Medical History: Asthma, Hypertension, Migraines (TERE LIGHT DO) Past Surgical History: , Other Additional Past Surgical Histo: HERNIA (MUSTAPHAGONZALEZ Leone ) Smoking Status: Never Smoker Alcohol Use: Occasionally Drug Use: None (MUSTAPHAGONZALEZ Leone DO) General Adult EDM: Chief Complaint: HEADACHE HPI: HPI: Patient is a 40 year old [f__sex] who presents with [] (MUSTAPHAGONZALEZ I ) HPI: Patient is a 40-year-old female who presented to ER for evaluation of nonproductive cough, congestion for 3 days. Patient has history of asthma, she ran out of her Symbicort. patient also have headache for 3 days as well. Patient denies any fever, no nausea vomiting. Patient has history of migraine headache. Patient also has history hypertension. Patient did not take her high blood pressure medication today. Patient denies any chest pain, no abdominal pain, no nausea vomiting. No neck stiffness (TERE LIGHT DO) Review of Systems: Review of Systems: Constitutional: Denies fever or chills. [] Eyes: Denies change in visual acuity. [] HENT: Denies nasal congestion or sore throat. [] Respiratory: Denies cough or shortness of breath. [] Cardiovascular: Denies chest pain or edema. [] GI: Denies abdominal pain, nausea, vomiting, bloody stools or diarrhea. [] : Denies dysuria. [] Musculoskeletal: Denies back pain or joint pain. [] Integument: Denies rash. [] Neurologic: Denies headache, focal weakness or sensory changes. [] Endocrine: Denies polyuria or polydipsia. [] Lymphatic: Denies swollen glands. [] Psychiatric: Denies depression or anxiety. [] (MUSTAPHAGONZALEZ Vasu ELLER) Review of Systems: ROS At least 10 ROS systems have been reviewed and are negative except as documented in the HPI. General: Negative except as outlined in HPI above. Skin: Negative except as outlined in HPI above. HEENT: Negative except as outlined in HPI above. Neck: Negative except as outlined in HPI above. Respiratory: Negative except as outlined in HPI above.. Cardiovascular: Negative except as outlined in HPI above. Abdomen: Negative except as outlined in HPI above. : Negative except as outlined in HPI above. Back/MSK: Negative except as outlined in HPI above. Neuro: Negative except as outlined in HPI above. Psych: Negative except as outlined in HPI above. (TERE LIGHT DO) Heart Score: Risk Factors: Risk Factors: DM, Current or recent (<one month) smoker, HTN, HLP, family history of CAD, obesity. Risk Scores: Score 0 - 3: 2.5% MACE over next 6 weeks - Discharge Home Score 4 - 6: 20.3% MACE over next 6 weeks - Admit for Clinical Observation Score 7 - 10: 72.7% MACE over next 6 weeks - Early Invasive Strategies (GONZALEZ LUCIANO DO) C/O Chest Pain: N/A (TERE LIGHT DO) Allergies: Allergies: Allergies Coded Allergies Type Severity Reaction Last Updated Verified No Known Drug Allergies 06/07/19 No (GONZALEZ LUCIANO DO) Physical Exam: PE: Constitutional: Well developed, well nourished, no acute distress, non-toxic appearance. [] HENT: Normocephalic, atraumatic, bilateral external ears normal, oropharynx moist, no oral exudates, nose normal. [] Eyes: PERRLA, EOMI, conjunctiva normal, no discharge. [] Neck: Normal range of motion, no tenderness, supple, no stridor. [] Cardiovascular:Heart rate regular rhythm, no murmur [] Lungs & Thorax: Bilateral breath sounds clear to auscultation [] Abdomen: Bowel sounds normal, soft, no tenderness, no masses, no pulsatile masses. [] Skin: Warm, dry, no erythema, no rash. [] Back: No tenderness, no CVA tenderness. [] Extremities: No tenderness, no cyanosis, no clubbing, ROM intact, no edema. [] Neurologic: Alert and oriented X 3, normal motor function, normal sensory function, no focal deficits noted. [] Psychologic: Affect normal, judgement normal, mood normal. [] (GONZALEZ LUCIANO DO) PE: General: Appears well, non toxic, and comfortable Skin: Warm, dry. Normal for ethnicity. HEENT: Atraumatic. PERRLA. Moist mucous membranes. Neck: Trachea midline. Normal ROM. Respiratory: Normal WOB. CTAB w/o w/r/r. No tachypnea. Cardiovascular: Regular rate and rhythm. Normal peripheral perfusion. No edema. Abdomen: Soft. Non tender. No distension. Back: Normal ROM. Musculoskeletal: No swelling or deformity. Neuro: Alert and oriented x 4. MAEE. Psych: Normal affect and mood. (TERE LIGHT DO) Current Patient Data: Labs: Laboratory Tests Test 11/15/20 05:21 POC Urine HCG, Qualitative Hcg negative (Negative) (GONZALEZ LUCIANO DO) EKG: EKG: [] (GONZALEZ LUCIANO DO) Radiology/Procedures: Radiology/Procedures: [] (GOZNALEZ LUCIANO DO) Course & Med Decision Making: Course & Med Decision Making Pertinent Labs and Imaging studies reviewed. (See chart for details) [] (GONZALEZ LUCIANO DO) Course & Med Decision Making Patient is a 40-year-old female who presented to ER due to cough, trouble breathing, headache for several days. Her chest x-ray was negative for any in filtration. Patient did not take her blood pressure medication today so her blood pressure was elevated. Patient was given medication in the ER for headache, she feel much better. Patient was discharged home in stable condition, patient was advised to follow-up with her family physician in 1 to 2 days as needed. Patient is amendable to plan of care. (TERE LIGHT DO) Jesus Disclaimer: Jesus Disclaimer: This electronic medical record was generated, in whole or in part, using a voice recognition dictation system. (GONZALEZ LUCIANO DO) Departure Departure Impression: Primary Impression: Headache Additional Impression: Bronchitis Disposition: 01 HOME / SELF CARE / HOMELESS Condition: STABLE Referrals: NO PCP (PCP) Please follow up with [facility] this week. [address], [address] [place] [address] Phone number: [phone] Patient Instructions: Acute Bronchitis, General Headache Without Cause Additional Instructions: Thank you for visiting our Emergency Department. We appreciate you trusting us with your care. If any additional problems come up don't hesitate to return to visit us. Please follow up with your primary care provider so they can plan additional care if needed and know about the problem that you had. If symptoms worsen come back to the Emergency Department. Any concerning symptoms that start such as chest pain, shortness of air, weakness or numbness on one side of the body, running high fevers or any other concerning symptoms return to the ER. Scripts Butalb/Acetaminophen/Caffeine ([id number] 50-325-40) 1 Each Tablet 1 EACH PO Q4HRS PRN for HEADACHE, #20 TAB Prov: TERE LIGHT DO 11/15/20 Prednisone (PREDNISONE) 20 Mg Tablet 1 TAB PO DAILY for 10 Days, #10 TAB Prov: TERE LIGHT DO 11/15/20 Albuterol Sulfate (PROAIR HFA INHALER) 8.5 Gm Hfa.aer.ad 2 PUFF IH PRN Q4-6HRS PRN for wheezing for 21 Days, #1 INHALER 0 Refills Prov: TERE LIGHT DO 11/15/20 Budesonide/Formoterol Fumarate (SYMBICORT 160-4.5 MCG INHALER) 10.2 Gm Hfa.aer.ad 2 PUFF IH BID PRN for shortness of air, #1 INHALER 5 Refills Prov: TERE LIGHT DO 11/15/20 GONZALEZ LUCIANO I DO Nov 15, 2020 05:35 TERE LIGHT DO Nov 15, 2020 06:29
[2020-11-15] MEDS ORDERED: IPRATRPIUM/ALBUTEROL 0.5/2.5MG 3 ML NEBU. NEB ONE (06:30)
[2020-11-15] MEDS ORDERED: KETOROLAC 60 MG/2 ML VIAL. IM ONE (07:00)
[2020-11-15] MEDS ORDERED: predniSONE 20 MG TABLET PO ONE (07:00)
[2020-11-15] MEDS ORDERED: PRED20TA PO (07:16)
[2020-11-15] MEDS ORDERED: ALBU2.5V8 IH (07:16)
[2020-11-15] MEDS ORDERED: BUTA1TAB23 PO ×2 (07:16→07:18)
[2020-11-15] MEDS ORDERED: BUDE10.2 IH (07:16)
[2020-11-15 07:28] VITALS: BP 177/86
--- NOTE | 2020-11-15 07:29 | RAD ---
INDICATION: Reason: cough, soa / Spl. Instructions: / History: COMPARISON: January 2016 FINDINGS: Single view of chest obtained. Cardiac silhouette is similar to prior. Mild haziness at lower lungs. No definite consolidation elsewhere in the lungs. IMPRESSION: * Haziness at left greater than right lung base. Could be from overlap of structures and atelectasis but early infiltrate not excluded. Electronically signed by: Robert Watt MD (11/15/2020 7:27 AM) [id number]
--- NOTE | 2020-11-15 20:00 | EKG ---
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
== END 2020-11-15 07:32 | disposition home or self-care (01) ==
LOC: ER 05:10
DX: J45.909 Unspecified asthma, uncomplicated (principal); G43.909 Migraine, unspecified, not intractable, without status migrainosus; I10 Essential (primary) hypertension
CPT/HCPCS: 71045; 81025; 93005; 94640; 96372; 99285; J1885; J7512